=== PATIENT | female | born 1960 | race Caucasian/White ===

== ENCOUNTER 2022-12-12 14:48 | Emergency (ER) | payer BC, SELFPAY ==
[2022-12-12 14:51] VITALS: BP 138/95; PULSE 73; RESP 18; TEMP 35.7; O2SAT 100; BMI 23.6
--- NOTE | 2022-12-12 15:20 | ED.VIS.GI ---
HPI HPI - GI History of Present Illness Chief Complaint: GI Bleed Informant: patient Narrative Narrative: Rhoda with abdominal pain and hematemesis. This patient has a history of about a 65 pound weight loss over the past 12 to 14 months. She thinks she had a CAT scan of her abdomen done to work this up. She had upper endoscopy and colonoscopy about March. She had a repeat colonoscopy a couple months later because she was not totally cleaned out. She states that the endoscopy was the only thing that showed an abnormality. It showed 5 areas of ulceration and bleeding along with esophagitis. She was started on pantoprazole. But she states this caused her to be nauseated and vomiting so it was stopped. But it sounds like nothing else was substituted or tried. She was on this for just days. They have not tried omeprazole yeast omeprazole any of the H2 blockers or Carafate. She not uncommonly gets epigastric or abdominal discomfort. But today it seems little worse than her normal. She is also had approximately 13 or 15 bowel obstructions due to adhesions but states this does not feel like a bowel obstruction. With those she gets more pain, distention and bilious vomiting. She does state that she vomited 3 times this morning. They all had some red blood in it. She states it was vomiting. This was not coughing and it did not come from her nose. She has not had hematemesis before. She has not had black or bloody stools now or at any other time. She does not feel weak or lightheaded. No orthostatic symptoms. She is not on any blood thinners. Past medical history includes rheumatoid arthritis, PACs and PVCs, hypertension Medications include Tikosyn metoprolol and a medication for rheumatoid arthritis. Surgeries include total hysterectomy appendectomy cholecystectomy and multiple's partial bowel resections and lysis of adhesions. [facility] Medical History Arthritis Bowel obstruction Esophagitis Hypertension MRSA (methicillin resistant Staphylococcus aureus) Home Medications famotidine 20 mg tablet (Pepcid) 20 mg PO DAILY #30 tabs 12/12/22 [Rx Last Taken Unknown] promethazine 25 mg tablet 25 mg PO TID PRN nausea and vomiting #20 tabs 12/12/22 [Rx Last Taken Unknown] sucralfate 1 gram tablet (Carafate) 1 g PO BID #60 tabs 12/12/22 [Rx Last Taken Unknown] Allergy/AdvReac Type Severity Reaction Status Date / Time lisinopril Allergy Intermediate Shortness Verified 12/12/22 14:51 of breath Penicillins Allergy Mild Hives Verified 12/12/22 14:51 morphine Allergy headache Verified 12/12/22 14:51 Surgical History H/O colectomy H/O: hysterectomy Hx of appendectomy Social History Smoking Status: Never smoker ROS ROS ED ROS Narrative A complete review of systems was performed and is negative except as documented in the history of present illness. Some specific details below. Constitutional: No recent fevers or chills. EYE: No visual complaints or pain. Change in eye color ENT: No difficulty swallowing. No swelling. No pain. Does have burning in her throat and some GERD symptoms. CV: No chest pain or palpitations. Syncopal or near syncopal. Respiratory: No dyspnea. No hemoptysis. No difficulty taking breaths. GI: Please see history of present illness. : No frequency dysuria or hematuria. Musculoskeletal: No recent trauma. No pains. Skin: No rash. Nondiaphoretic. Neuro: No weakness or numbness. Endocrine: No polyuria or polydipsia. EXAM Physical Exam Narrative Exam Narrative: CONSTITUTIONAL: Patient is nontoxic in appearance. The patient looks comfortable. HEENT: No notable trauma. Mucous membranes moist. No sinus tenderness. No indication of pain with swallowing. EYES: No conjunctival injection. No proptosis. No icterus. No pallor. CARDIOVASCULAR: Regular rate. Regular rhythm with occasional extrasystoles on auscultation. No notable murmur. No JVD. RESPIRATORY: No respiratory distress. Breathing is unlabored. No wheezes. No rhonchi. No rales. No pain with a deep breath. GASTROINTESTINAL: Not distended. Bowel sounds are normal. He has very mild epigastric area tenderness but no rebound or guard being. She has multiple well-healed surgical scars throughout her abdomen. GENITOURINARY: No tenderness over the bladder. No CVA tenderness. MUSCULOSKELETAL: Atraumatic. NEUROLOGICAL: Patient is alert and appropriate. No focal deficit noted. SKIN: No noted rashes. No diaphoresis. PSYCHIATRIC: Patient is calm. Mood is appropriate. Const Vital Signs: 12/12/22 14:51 12/12/22 15:07 12/12/22 17:52 Temperature 96.2 F L Temperature Source Temporal Pulse Rate 73 66 Respiratory Rate 18 66 H Respiratory Pattern Normal Blood Pressure 138/95 H 153/99 H Blood Pressure Mean 109 117 Pulse Ox 100 100 Oxygen Delivery Method Room Air Room Air MDM MDM MDM Narrative Medical decision making narrative: CBC shows minimally low white count which is nonspecific. Hemoglobin platelets are normal. Patient's electrolytes are normal. Patient's glucose is just the elevated which is nonspecific and does not need acute treatment. Patient's liver function tests are essentially normal other than minimal elevation in the alkaline phosphatase. Patient's lipase is negative. My independent interpretation of the CT scan of the abdomen with IV contrast shows no obstruction. I see no free air or gastric perforation. Final reading is negative for acute process. Patient was given Zofran which only helped a little bit with her nausea. She was given Phenergan which she states works much better. She has no nausea now. We also gave her Pepcid. I think her symptoms are likely from ulcer and gastritis. She has documented 5 ulcers per her in her stomach but no treatment was given. Because she has problems proton pump inhibitors I will start H2 william as well as Carafate and will write for Phenergan for symptomatic control. I think she is appropriate to go home as she has normal vitals, not lightheaded with walking, normal hemoglobin, normal platelets, no blood thinners and a normal CT. We did discuss reasons that would bring her back. Lab Data Attestation: I reviewed the patient's lab results. Labs: Laboratory Results - last 24 hr 12/12/22 15:30 WBC 3.6 L RBC 4.59 Hgb 13.1 Hct 40.4 MCV 88.0 MCH 28.5 MCHC 32.4 RDW Std Deviation 40.7 RDW Coeff of Kavon 12.6 Plt Count 181 MPV 9.2 Immature Gran % (Auto) 0.000 Neut % (Auto) 57.5 Lymph % (Auto) 33.1 [place] % (Auto) 7.5 Eos % (Auto) 1.1 Baso % (Auto) 0.8 Absolute Neuts (auto) 2.1 Absolute Lymphs (auto) 1.20 Nucleated RBC % 0 Sodium 138 Potassium 3.8 Chloride 106 Carbon Dioxide 27.0 Anion Gap 5 BUN 11 Creatinine 0.77 Estim Creat Clear Calc 80.87 Est GFR (MDRD) Af Amer 97 Est GFR (MDRD) Non-Af 81 BUN/Creatinine Ratio 14.3 Glucose 123 H Lactic Acid 2.0 Calcium 8.9 Total Bilirubin 1.00 AST 19 ALT 16 Alkaline Phosphatase 123 H Total Protein 6.9 Albumin 3.4 Globulin 3.5 Albumin/Globulin Ratio 1.0 Lipase 36 Radiography Diagnostic Testing: Clinical Impression(s) from Imaging Studies Abdomen/Pelvis CT 12/12/22 16:22 IMPRESSION: No acute abnormalities in the abdomen or pelvis. Large amount of retained stool in the colon. Electronically Signed: Axel Zaidi MD at 17:41 EDT , Discharge Plan Triage Chief Complaint: GI Bleed ED Provider: Cody Richards Dx/Rx/DC Orders Clinical Impression: Acute upper GI bleed, Peptic ulcer disease Instructions: ED Upper GI Bleeding (Stable) Prescriptions: New famotidine [Pepcid] 20 mg tablet 20 mg PO DAILY Qty: 30 0RF sucralfate [Carafate] 1 gram tablet 1 g PO BID Qty: 60 0RF promethazine 25 mg tablet 25 mg PO TID PRN (Reason: nausea and vomiting) Qty: 20 0RF Primary Care Provider: Ana Paula Guerra Referrals: [facility] Doctor,Out of [Non-Staff] - Activity Restrictions/Additional Instructions: Follow-up with your biochemistry technologist as soon as possible. Disposition Disposition: Home, Self Care
[2022-12-12] MEDS: Ondansetron 4 MG/2 ML Vial IV (15:32)
[2022-12-12 15:40] LABS: Absolute Neutrophil Count 2.1 X10^3/uL (2.0-7.7); Basophil# 0.03 X10^3/uL; Basophil% 0.8 % (0-1); Eosinophil# 0.04 X10^3/uL; Eosinophils% 1.1 % (0-5); Hematocrit 40.4 % (37-47); Hemoglobin 13.1 g/dL (12.0-15.0); Lymphocyte % 33.1 % (19-41); Mean Corp Hgb Conc 32.4 g/dL (32-36); Mean Corpuscular Hgb 28.5 pg (27.0-32.0); Mean Platelet Vol. 9.2 fl (6.2-12.0); Monocyte# 0.27 X10^3/uL; Monocyte% 7.5 % (0-10); NRBC Flagged by Analyzer 0 % (0-5); Neutrophil # 2.08 X10^3/uL (2.7-7.7); Neutrophil % 57.5 % (47-70); Platelet Count 181 K/mm3 (150-450); RBC Distribution Width CV 12.6 % (11.6-14.6); RBC Distribution Width SD 40.7 fl (35.1-43.9); Red Blood Count 4.59 M/mm3 (4.2-5.4); White Blood Count 3.6 K/mm3 (4.4-11.0)
[2022-12-12 16:08] LABS: AST(SGOT) 19 U/L (15-37); Alanine Aminotransfer ALT/SGPT 16 U/L (13-56); Albumin, Serum 3.4 g/dL (3.2-5.0); Alkaline Phosphatase 123 U/L (45-117); Anion Gap 5 (5-15); BUN 11 mg/dL (7-18); BUN/Creat Ratio 14.3 RATIO (10-20); Calcium,Total 8.9 mg/dL (8.5-10.1); Chloride 106 mmol/L (98-107); Creatinine, Serum 0.77 mg/dL (0.55-1.02); EST Glomerular Filtration Rate 81 mL/min (>60); Est Glom Filt Rate - Afr Amer 97 mL/min (>60); Estimated Creatinine Clearance 80.87 ml/min; Globulin 3.5 g/dL (2.2-4.2); Glucose 123 mg/dL (74-106); Lipase 36 U/L (13-75); Potassium 3.8 mmol/L (3.5-5.1); Protein, Total 6.9 g/dL (6.4-8.2); Sodium Level 138 mmol/L (136-145)
[2022-12-12] MEDS: Famotidine 200 MG/20 ML MDV 20 MG in 0.9% Normal Saline (Pres. free 8 ML 300 MG IV (16:09)
--- NOTE | 2022-12-12 16:22 | CT_ITS ---
INDICATION: abd pain EXAMINATION: CT Abdomen And Pelvis W/ Contrast Injection TECHNIQUE: Helically acquired images were obtained of the abdomen and pelvis after IV contrast. A radiation dose optimization technique was used for this scan. IV Contrast dosage and agent: IV 100mL [id number] Oral contrast: None. COMPARISON: None. FINDINGS: Visualized lung bases: Unremarkable Liver: Unremarkable Gallbladder: Surgically absent. Spleen: Unremarkable Pancreas: Unremarkable Adrenal Glands: Unremarkable Kidneys: Scattered too small to characterize subcentimeter hypodensities bilaterally. Vasculature: Severe aortoiliac atherosclerotic disease. GI Tract: The appendix is not visualized. Status post partial small bowel resection with postsurgical changes. Large amount of retained stool in the colon. Lymphadenopathy: None Peritoneum: No ascites. Bladder: Unremarkable Reproductive organs: Status post hysterectomy. Bones/Soft tissues: There are diffuse degenerative changes of the spine. CT/Abdomen/Pelvis W IV Cont ONLY IMPRESSION: No acute abnormalities in the abdomen or pelvis. Large amount of retained stool in the colon. Electronically Signed: Axel Zaidi MD at 17:41 EDT ,
[2022-12-12] MEDS: proMETHazine 25 MG/ML Syringe 12.5 MG IM (16:38)
[2022-12-12 17:52] VITALS: BP 153/99; PULSE 66; RESP 66; O2SAT 100
[2022-12-12 19:36] LABS: Reflex Lactate? Y
== END 2022-12-12 18:13 | disposition home or self-care (01) ==
PROVIDERS: Emergency Provider Emergency Medicine; PCP Internal Medicine; Visit Provider Emergency Medicine
DX: K27.4 Chronic or unspecified peptic ulcer, site unspecified, with hemorrhage (principal); M06.9 Rheumatoid arthritis, unspecified; I10 Essential (primary) hypertension; Z79.899 Other long term (current) drug therapy
CPT/HCPCS: 74177; 80053; 83605; 83690; 85025; 96372; 96374; 96375; 99284; Q9967; A4216; J2405; J3490